=== PATIENT | male | born 1940 | race Caucasian/White ===

== ENCOUNTER 2019-01-24 18:14 | Observation (INO) | payer MEDICAID, MEDICARE ==
--- NOTE | 2019-01-24 18:34 | ED ---
Neurological HPI - HPI Summary HPI Summary: This patient is a 78 year old M with a history of NHL, meningioma, presenting to ED with a chief complaint of syncope 30 minutes ago. Patient got up and started to walk towards the kitchen when he began to feel weak and sweaty. He then proceeded to lose consciousness and was helped to the floor (did not hit head). Patient regained consciousness after a few minutes. Patient denies this occurring before. 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 Patient is taking Imbruvica. He denies a history of blood clots or atrial fibrillation. FHx of cardiac disease in the mother but no known family history of blood clots. The patient denies pain, headaches, dizziness. Patient reports neuropathy in the bilateral feet that is chronic. Patient denies numbness/tingling in the bilateral legs. 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 Negative: Numbness - Allergy/Home Medications Allergies/Adverse Reactions: Allergies Allergy/AdvReac Type Severity Reaction Status Date / Time No Known Allergies Allergy Verified 01/24/19 18:32 Home Medications: Home Medications Acyclovir 200 mg PO BID 01/24/19 [History Confirmed 01/24/19] Imbruvica 560 mg PO DAILY 01/24/19 [History Confirmed 01/24/19] Lopressor TAB* 50 mg PO BID 01/24/19 [History Confirmed 01/24/19] PMH/Surg Hx/FS Hx/Imm Hx Sensory History: Denies: Hx Legally Blind, Hx Deafness Opthamlomology History: Denies: Hx Legally Blind EENT History: Denies: Hx Deafness Neurological History: Reports: Hx Peripheral Neuropathy - Cancer History Cancer Type, Location and Year: Non-hodgkins lymphoma Infectious Disease History: Denies: Traveled Outside the [place] in Last 30 Days - Family History Known Family History: Positive: Cardiac Disease, Other - Negative for blood clots - Social History Alcohol Use: Occasionally Hx Substance Use: No Substance Use Type: Reports: None Hx Tobacco Use: Yes Smoking Status (MU): Former Smoker Review of Systems Positive: Skin Diaphoresis Neurological: Negative - Tingling, Other - Chronic neuropathy in feet Positive: Weakness, Syncope. Negative: Numbness All Other Systems Reviewed And Are Negative: Yes Physical Exam - Summary Physical Exam Summary: Constitutional: Well-developed, Well-nourished, Alert. (-) Distressed Skin: Warm, Dry HENT: Normocephalic; Atraumatic Eyes: Conjunctiva normal Neck: Musculoskeletal ROM normal neck. (-) JVD, (-) Stridor, (-) Nuchal rigidity Cardio: Irregularly irregular heart rate; Intact distal pulses; Radial pulses are 2+ and symmetric. (-) Murmur Pulmonary/Chest wall: Effort normal. (-) Respiratory distress, (-) Wheezes, (-) Rales Abd: Soft, (-) tenderness, (-) Distension, (-) Guarding, (-) Rebound Musculoskeletal: (-) Edema Lymph: (-) Cervical adenopathy Neuro: Alert, Oriented x3 Psych: Mood and affect Normal Triage Information Reviewed: Yes Vital Signs On Initial Exam: Initial Vitals Temp Pulse Resp BP Pulse Ox 98.4 F 89 16 126/69 97 01/24/19 18:21 01/24/19 18:21 01/24/19 18:21 01/24/19 18:21 01/24/19 18:21 Vital Signs Reviewed: Yes Procedures - Sedation Patient Received Moderate/Deep Sedation with Procedure: No Diagnostics - Laboratory Result Diagrams: 01/24/19 18:45 01/24/19 18:45 Lab Statement: Any lab studies that have been ordered have been reviewed, and results considered in the medical decision making process. - Radiology CXR Radiology Interpretation Completed By: ED Physician Summary of Radiographic Findings: Right chest wall port, no acute abnormality, pending official radiology report. - EKG 1816 Cardiac Rate: NL - 91 BPM EKG Rhythm: Atrial Fibrillation Summary of EKG Findings: An EKG at 1816 revealed atrial fibrillation at 91 BPM with an incomplete left bundle branch block, no STEMI, no prior to compare to. Dr. Ayala has reviewed and interpreted this EKG. Course/Dx - Course Course Of Treatment: 78 y/o male w hx non-Hodgkin's lymphoma who presents with syncopal event. - Syncope. DDx: Cardiac issue: new onset afib. Trop neg. Would benefit from telemetry monitoring. D dimer negative, lower suspicion PE. also: Seizure: no witnessed seizure activity, incontinence or h/o seizures to suggest seizure today. Hypoxia and hypoglycemia less likely in this patient with normal sats and BG. Vessels: PE, dissection, AAA. Clinical picture inconsistent, no abd pain, no pulsatile mass, symmetric pulses, d dimer neg. Volume issue: dehydration from vomiting/diarrhea/decreased PO, sepsis, GI bleed , ruptured ectopic or bleeding AAA. No signs of recent illness to suggest infection. No mediastinal widening. Neuro: No MORAN, normal neuro exam. CT head ordered by hospitalist. Also: vasovagal, drugs/meds, autonomic insufficiency - Diagnoses Provider Diagnoses: Syncope, Afib - Physician Notifications Discussed Care Of Patient With: Reina Pierce Time Discussed With Above Provider: 19:43 Instructed by Provider To: Admit As Observation - Discussed patient case with Dr. Pierce, hospitalist, who accepted the patient for admission to [facility]. Discharge ED - Sign-Out/Discharge Documenting (check all that apply): Patient Departure - admit - Discharge Plan Condition: Fair Disposition: ADMITTED TO [facility] Referrals: No Primary Care Phys,NOPCP [Primary Care Provider] - - Billing Disposition and Condition Condition: FAIR Disposition: Admitted to [facility] - Attestation Statements Document Initiated by Anibal: Yes Documenting Scribe: Michelet Shaffer Provider For Whom Anibal is Documenting (Include Credential): Conrad Ayala MD Scribe Attestation: IMichelet, scribed for Conrad Ayala MD on 01/24/19 at 2108. Scribe Documentation Reviewed: Yes Provider Attestation: The documentation as recorded by the Michelet naranjo accurately reflects the service I personally performed and the decisions made by me, Conrad Ayala MD Status of Scribe Document: Viewed
[2019-01-24 18:54] LABS: ABS Basophils 0.1 10^3/ul (0-0.2); ABS Lymphocytes 0.8 10^3/ul (1.0-4.8); ABS Monocytes 0.5 10^3/ul (0-0.8); Eosinophil % 0.2 %; Hematocrit 34 % (42-52); Hemoglobin 11.5 g/dL (14.0-18.0); Lymphocyte % 9.4 %; Mean Corpuscular HGB Conc 34 g/dL (31-36); Mean Corpuscular Hemoglobin 28 pg (27-31); Mean Corpuscular Volume 81 fL (80-94); Red Blood Count 4.15 10^6 /uL (4.18-5.48); Red Cell Distribution Width 20 % (10-15); White Blood Count 8.4 10^3/uL (3.5-10.8)
[2019-01-24 19:08] LABS: Albumin 3.3 g/dL (3.2-5.2); Albumin/Globulin Ratio 1.6 (1-3); BUN/Creatinine Ratio 17.8 (8-20); Calcium 8.5 mg/dL (8.6-10.3); EGFR African American 81.1 (>60); Globulin 2.1 g/dL (2-4); Potassium 3.4 mmol/L (3.5-5.0); Total Bilirubin 1.4 mg/dL (0.2-1.0); Total Protein 5.4 g/dL (6.4-8.9)
[2019-01-24 19:10] LABS: Troponin I 0.02 ng/mL (<0.03)
[2019-01-24 19:18] LABS: Platelet Count 77 10^3/uL (150-450)
[2019-01-24] MEDS ORDERED: Potassium Chlor TAB* 20 MEQ TAB.ER PO ONE (20:05)
[2019-01-24] MEDS ORDERED: KCL 20 MEQ/100 ML IVPREMIX* 20 MEQ/100 ML BAG IV ONE (20:05)
[2019-01-24] MEDS ORDERED: Metoprolol Tartrate TAB* 50 mg PO ONE (20:12)
[2019-01-24 20:28] LABS: Magnesium 1.8 mg/dL (1.9-2.7)
[2019-01-24] MEDS ORDERED: Acetaminophen TAB* 325 MG PO PRN (20:32)
[2019-01-24] MEDS ORDERED: Magnesium Sulfate 1 GM IV* 1 GM/100 ML BAG IV ONE (20:32)
[2019-01-24 20:40] LABS: TSH (Thyroid Stimulating Horm) 6.28 mcIU/mL (0.34-5.60)
[2019-01-24] MEDS ORDERED: NS 0.9% 1000 ML** 1,000 ML IV SCH (20:45)
[2019-01-24 21:36] LABS: Free T4 1.17 ng/dL (0.61-1.12)
[2019-01-24] MEDS: Acyclovir* 200 MG CAP PO SCH (23:31)
[2019-01-25] MEDS ORDERED: Magnesium Sulfate 1 GM IV* 1 GM/100 ML BAG IV ONE (00:30)
--- NOTE | 2019-01-25 00:36 | HP ---
CC: Primary care provider * HISTORY AND PHYSICAL: DATE OF ADMISSION: 01/24/19 PRIMARY CARE PROVIDER: None locally. CHIEF COMPLAINT: Syncope. HISTORY OF PRESENT ILLNESS: Hu Ortiz is a 78-year-old male with a history of non-Hodgkin lymphoma, for which he is currently being treated, who drove from [place], [place] to see his family in [place], [place] today. The patient stated that the drive took approximately 4 hours. Early afternoon, they checked in a hotel and then they went over to see his family for dinner. Shortly after large dinner with turkey, the patient stated that he was sitting on the couch, felt sweaty, and unwell and hot. He went to the kitchen and thought he would "walk it off." He came back and he still felt uneasy and told his that he is feeling hot. noted that the patient was diaphoretic, and shortly thereafter, the patient passed out. The patient's lowered him to the floor. She thought that he was unconscious for approximately a minute but breathing comfortably. There was no incontinence and no tremors noted. The patient came about without any confusion. He stated that he felt better after he regained consciousness. They came in to the ED for evaluation. His orthostatic blood pressures were checked and they did not show positive orthostasis. The patient was noted to be in atrial fibrillation with a heart rate in the low 100s when he came in to the ED. His potassium was 3.4, so potassium was started to be administered intravenously and the patient spontaneously converted to sinus rhythm. The patient has no history of atrial fibrillation in the past. The patient is going to be placed on overnight observation with the diagnosis of syncope. PAST MEDICAL HISTORY: 1. History of non-Hodgkin lymphoma, diagnosed in 2008, status post right-sided IJ port placed. 2. History of hypertension. 3. Status post lap cholecystectomy. 4. History of right inguinal hernia repair. MEDICATIONS: Include: 1. Imbruvica 560 mg daily. 2. Lopressor 50 mg b.i.d. 3. Acyclovir 200 mg b.i.d. ALLERGIES: No known drug allergies. FAMILY HISTORY: The patient's mother of likely breast cancer. The patient 's father of unknown reasons. The patient stated that his parents did not talk about his health, so he really does not know. SOCIAL HISTORY: The patient denies any tobacco, alcohol, or drug use. He is retired. Lives with his who is his surrogate. 's name is Evelyn Ortiz. REVIEW OF SYSTEMS: Please see history of present illness. The patient stated he had been in his usual state of health. He complains of occasional leg cramping which is chronic for him. The patient stated that recent evaluation by his oncologist noted that his PET scan was positive for masses in the abdomen and an abnormality in his brain. He subsequently had an MRI and a CT of his brain within the past couple of days locally here in [place]. Those results were not known to him, but he is supposed to follow up with a neurologist some time next week. The patient stated that he was asymptomatic from neuro standpoint and denies any problems with weakness, vision changes, or unsteady gait. The remaining 12 systems were reviewed with the patient and were otherwise negative. PHYSICAL EXAMINATION GENERAL: The patient is a very pleasant 78-year-old male who is in no acute distress, alert, awake, and oriented x3. VITAL SIGNS: Blood pressure of 118/62, heart rate of 84 and regular, respiratory rate 16, oxygen saturation 93% on room air, temperature 98.3. HEENT: Head: Atraumatic, normocephalic. Eyes: Pupils are equal, reactive to light and accommodation. Oropharynx clear. Mucosa moist. NECK: Supple. No JVD, no bruits bilaterally. RESPIRATORY: Clear to auscultation bilaterally. CARDIOVASCULAR: Regular rate and rhythm. No murmurs. ABDOMEN: Soft, nontender. Bowel sounds are present in all 4 quadrants. Mild splenomegaly palpated. EXTREMITIES: There is trace right pedal edema. Pulses are +2 bilaterally. There is no clubbing or cyanosis. NEUROLOGIC: On neuro evaluation, speech is clear. Cranial nerves II through XII grossly intact. Motor strength is 5/5 bilaterally. PSYCHIATRIC: On psychiatric evaluation, the patient is pleasant and cooperative with evaluation, oriented x3, but appears to have rather poor memory and sometimes the patient defers to his for more information. SKIN: On evaluation of the skin, no ecchymotic areas or rashes noted. DIAGNOSTIC STUDIES/LAB DATA: Sodium of 136, potassium 3.4, chloride 102, carbon dioxide 26, BUN 19, creatinine 1.07. Liver function tests were unremarkable apart from bilirubin of 1.4. The patient's troponin was 0.02. TSH of 6.28 and free T4 is pending at the time of dictation. The patient's D-dimer was below 200. White blood cell count of 8.4, hemoglobin of 11.5, hematocrit of 34, and platelets of 77 which as per the patient is chronic with thrombocytopenia. Brain CT, impression: "Right middle cerebral cranial fossa extra-axial mass. 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 Recommend pre and postcontrast MRI. Age-related atrophy and mild chronic small vessel ischemic changes." The patient's EKG initially showed atrial fibrillation with a heart rate of 91 beats per minute and incomplete right bundle-branch block. The patient's chest x-ray showed mildly accentuated right hilum, but no obvious infiltrate. That was read myself prior to the official radiologist's report. ASSESSMENT AND PLAN: 1. Syncope. The patient is not orthostatic. He did have syncope after a large meal. It is possible that it is vasovagal. He does have a mass in his brain that is being currently evaluated by his oncologist in [place], [place] and just had a recent MRI. He is not aware of the results of it though. At this point, please also note that the patient post syncope noted to be in atrial fibrillation, which is new to the patient. He was asymptomatic from cardiac standpoint though and apart from syncope, did not have any chest pain, palpitations, or shortness of breath. He spontaneously went into sinus rhythm when he was observed in the emergency department. At this point, the patient is going to be placed on overnight observation on telemetry monitoring bed. His troponins are going to be followed and we will obtain an echocardiogram. We will place him on his metoprolol from home. 2. In regards to abnormality on his brain CT, it is already being followed in [place], [place] and the patient would prefer to continue his followup with his oncologist. At this point, I am unsure but it is rather unlikely that his syncope is related to neuro syncope. 3. The patient's hypokalemia could have contributed to the patient's atrial fibrillation and syncope and is going to be replaced p.o. 4. Non-Hodgkin lymphoma. The patient is going to be continued on his p.o. medications from home. 5. The patient's TSH is slightly elevated. We will check free T4 and see if the patient may need to be on levothyroxine supplementation. 6. For DVT prophylaxis, the patient is going to be placed on sequential compression devices and pharmacologic DVT prophylaxis contraindicated due to thrombocytopenia, which in this patient is chronic. 7. The patient's code status is full. His surrogate is his . TIME SPENT: Approximately 75 minutes were spent on admission of this patient, more than half that time was spent [id number] with the patient during the interview and physical exam. [id number]/[facility] #: [id number] MTDD
[2019-01-25 04:56] LABS: ABS Lymphocytes 0.7 10^3/ul (1.0-4.8); ABS Monocytes 0.5 10^3/ul (0-0.8); ABS Neutrophils 4.4 10^3/ul (1.5-7.7); Eosinophil % 0.5 %; Hematocrit 30 % (42-52); Hemoglobin 10.1 g/dL (14.0-18.0); Lymphocyte % 13.3 %; Mean Corpuscular HGB Conc 34 g/dL (31-36); Mean Corpuscular Hemoglobin 28 pg (27-31); Mean Corpuscular Volume 82 fL (80-94); Mean Platelet Volume 7.9 fL (7.4-10.4); Platelet Count 62 10^3/uL (150-450); Red Blood Count 3.64 10^6 /uL (4.18-5.48); Red Cell Distribution Width 20 % (10-15); White Blood Count 5.6 10^3/uL (3.5-10.8)
[2019-01-25 05:12] LABS: Albumin 3.1 g/dL (3.2-5.2); Albumin/Globulin Ratio 1.8 (1-3); BUN/Creatinine Ratio 19.8 (8-20); EGFR African American 91.9 (>60); Globulin 1.7 g/dL (2-4); Indirect Bilirubin 1.1 mg/dL (0.3-1.0); Potassium 4.1 mmol/L (3.5-5.0); Total Bilirubin 1.4 mg/dL (0.2-1.0); Total Protein 4.8 g/dL (6.4-8.9)
[2019-01-25] MEDS ORDERED: Metoprolol Tartrate TAB* 50 mg PO SCH (09:00)
[2019-01-25] MEDS: Acyclovir* 200 MG CAP PO SCH (09:22)
--- NOTE | 2019-01-25 10:06 | ECHO ---
*[facility]* [place] [address] Fax #: [phone] Transthoracic Echocardiogram Patient: Hu Ortiz : 1940 Study Date: 01/25/2019 Age: 78 Gender: M HR: 60 bpm Height: 68 in /172.7 cm BSA: 1.96 m^2 Weight: 181.6 lb /82.6 kg BMI: 27.7 kg/m^2 *Foot Press Operator: Erin Coley [facility] *Referring Physician: * Reina Pierce *Reading Physician: * Lucas Walsh MD Indications: Syncope. History: Non-Hodgkin lymphoma. Left bundle branch block. Risk factors: Hypertension. Conclusions Summary: - Left ventricle: The cavity size is normal. Wall thickness is mildly to moderately increased. Systolic function is normal. The estimated ejection fraction is 55-60%. Wall motion is normal; there are no regional wall motion abnormalities. - Left atrium: The atrium is moderately to severely dilated. - Right atrium: The atrium is mildly dilated. - Functionally benign heart valves. - Aortic arch: The aortic arch is mildly dilated. - There is no prior echocardiogram available to compare with at this time. Study data: Transthoracic echocardiogram. Procedure: Transthoracic echocardiography was performed. Image quality was good. Complete 2D, spectral Doppler, and color flow Doppler. Location: Bedside. Patient status: Inpatient. Patient room number: 447. Rhythm: Normal sinus rhythm. Findings Left ventricle: The cavity size is normal. Wall thickness is mildly to moderately increased. Systolic function is normal. The estimated ejection fraction is 55-60%. Wall motion is normal; there are no regional wall motion abnormalities. There is no consistent Doppler evidence of clinically significant diastolic dysfunction. Right ventricle: The cavity size is normal. Systolic function is normal. Left atrium: The atrium is moderately to severely dilated. Right atrium: The atrium is mildly dilated. Mitral valve: The Mitral valve annulus appears calcified. The leaflets are mildly thickened. There is trace regurgitation. Aortic valve: The valve is trileaflet. The leaflets are mildly thickened. There is no evidence of stenosis. There is trace regurgitation. Tricuspid valve: The leaflets are normal thickness. There is trace regurgitation. Pulmonic valve: The leaflets are normal thickness. There is no evidence of stenosis. There is trace regurgitation. Aorta: Aortic root: The aortic root is not dilated. Aortic arch: The aortic arch is mildly dilated. Pericardium: There is no significant pericardial effusion. Pulmonary arteries: Not well visualized. Systolic pressure is within the normal range. Systemic veins: Inferior vena cava: The vessel is dilated. There is (>= 50%) respiratory change in the IVC dimension. Measurements Left ventricle Value Ref Mitral valve Value Ref MIROSLAVA, LAX 5.1 cm 4.2 - 5.8 Peak E 0.89 m/sec ----- ESD, LAX 3.8 cm 2.5 - 4.0 Peak A 0.73 m/sec ----- FS, LAX 27 % 25 - 43 Decel time 177 ms ----- PW, ED, LAX (H) 1.3 cm 0.6 - 1.0 Peak grad, D 3.2 mm Hg ----- EF 52 % 52 - 72 Peak E/A ratio 1.2 ----- E', lat santi, TDI (L) 7.4 cm/sec >=10.0 E/e', lat santi, 12 Pulmonic valve Value Ref TDI Peak v, S 0.83 m/sec ----- E', med santi, TDI (L) 6.8 cm/sec >=7.0 Peak grad, S 3.0 mm Hg --- -- E/e', med santi, 13 TDI Tricuspid valve Value Ref E', avg, TDI 7.1 cm/sec TR peak v 2.33 m/sec <=2 .8 E/e', avg, TDI 13 <=14 Peak RV-RA grad, S 22 mm Hg --- -- LVOT Value Ref Aortic root Value Ref Peak ijeoma, S 0.9 m/sec Root diam 3.3 cm <4.1 Mean grad, S 2 mm Hg Ascending aorta Value Ref Ventricular septum Value Ref AAo AP diam, S 3.2 cm ----- IVS, ED (H) 1.4 cm 0.6 - 1.0 Aortic arch Value Ref Right ventricle Value Ref Arch diam 3.6 cm ----- MIROSLAVA, LAX 3.2 cm MIROSLAVA minor ax, A4C 2.5 cm 1.9 - 3.5 Decending aorta Value Ref mid Lon peak ijeoma 0.71 m/sec ----- Pressure, S 25 mm Hg Pulmonary artery Value Ref Left atrium Value Ref Pressure, S 30.0 mm Hg ----- AP dim, ES (H) 4.80 cm 3.00 - 4.00 Inferior vena cava Value Ref ML dim, A4C 4.8 cm Diam 2.3 cm ----- SI dim, A4C 6.2 cm Vol/bsa, ES, A/L (H) 48 ml/m^2 16 - 34 Pulmonary veins Value Ref Peak v, S 0.63 m/sec ----- Right atrium Value Ref Peak v, D 0.48 m/sec ----- SI dim, ES (H) 5.6 cm 3.4 - 5.3 Peak S/D ratio 1.3 ----- ML dim, ES, A4C (H) 4.5 cm 2.6 - 4.4 A rev duration 77 ms ----- Estimated RAP 3 mm Hg Aortic valve Value Ref Santi diam, ED 2.0 cm Peak v, S 1.44 m/sec VTI, S 34.0 cm Mean grad, S 5.0 mm Hg Peak grad, S 8.0 mm Hg Legend: (L) and (H) trent values outside specified reference range. Prepared and electronically signed by Lucas Walsh MD 01/25/2019 10:06
[2019-01-25 11:50] VITALS: BP 139/74
--- NOTE | 2019-01-25 13:48 | DS ---
DISCHARGE SUMMARY: DATE OF ADMISSION: 01/24/19 DATE OF DISCHARGE: 01/25/19 ADMITTING PROVIDER: Reina Pierce MD. PRIMARY CARE PHYSICIAN: Dr. Victoriano Torres, [place], [place]. OUTPATIENT LEARNING DEVELOPER/ONCOLOGIST: Dr. Jay Quiroga of [facility] of [place], [place]. INTERVENTIONAL RADIOLOGIST: Dr. Victoriano Lee of [place], [place]. NEURO-INTERVENTIONAL RADIOLOGIST: Dr. Bk Kc of [place], [place]. ATTENDING PHYSICIAN ON THE DAY OF DISCHARGE: Jose Adhikari MD. CHIEF COMPLAINT: Syncope. PRINCIPAL DIAGNOSES: 1. Newly discovered atrial fibrillation (rate controlled). 2. Syncope, possibly vasovagal versus secondary to arrhythmia. 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 He has also had head imaging recently after the abnormal PET scan showed abnormal bleeding in the brain that was concerning for what they think is likely a meningoma versus it sounds like aneurysm. He lives in [place], [place] and drove to [place], [place] on day of admission to visit his family. Please see H and P for full details, but briefly after dinner, he began to feel sweaty, unwell, and warm. He get up to go to the kitchen to walk it off but still felt uneasy and the patient then passed out with the lowering him to the floor. He was unconscious for about a minute. There was no incontinence or tremors or limb movements. He eventually awoke without any confusion. He was taken to [facility] Emergency Room for further evaluation, reportedly with EMS definitely in the emergency room, he was noted to be on initial EKG to be in atrial fibrillation with controlled rates as well as have deficiency of potassium 3.4 and magnesium of 1.8. He converted to normal sinus rhythm spontaneously. An EKG did show evidence of some borderline left bundle-branch block and some Q waves inferiorly in III and aVF. There was no prior EKG to compare to. He has never had an echocardiogram before. He had a CT of the brain, which demonstrated a 2.1 x 1.9 cm extracranial mass located in the right middle cranial fossa anterior to the temporal lobe. There was minimal mass effect on adjacent temporal lobe and inferior frontal lobe. 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 There was also age-related atrophy and mild chronic small vessel disease. He was admitted to observation status and echocardiogram was obtained, which showed preserved ejection fraction at 55% to 60%. There was no wall motion abnormalities or valvular pathology. The left atrium was moderately to severely dilated. The right atrium was mildly dilated. Discussion was held with the patient about the new diagnosis of paroxysmal atrial fibrillation. He denies any history of palpitations. He does occasionally get dizzy. Given his CHADS2-VASC score of 3 , he is at elevated risk of stroke at approximately 3.2% per year. However, given his pending workup which will include the retroperitoneal biopsy on approximately 01/31/[address] Lee and a meeting with neuro-interventional radiologist for potential aneurysmal clipping versus assessment of what his right middle cranial fossa mass actually is along with the fact that he is away from home. It was decided to defer anticoagulation for now until I get the above studies and clarify exactly what this brain mass is, must have been an enhanced risk of intracranial bleeding. He was otherwise asymptomatic, hemodynamically stable and already on home beta-blockade with metoprolol 50 mg p.o. b.i.d. He denied any other headaches, vision changes, weight loss, focal neurological deficits. Orthostatic vital signs were checked and were normal. He also of note has likely chronic thrombocytopenia for at least ever since being on ibrutinib BTK inhibitor for his non-Hodgkin's lymphoma, which can cause severe thrombocytopenia and platelets were 77 on admission and 62 on discharge, another reason to be mindful about bleeding risks versus prior stroke prevention. DISCHARGE MEDICATIONS: Include: 1. Acyclovir 200 mg p.o. b.i.d. 2. Imbruvica (ibrutinib) 560 mg p.o. daily. 3. Lopressor 50 mg p.o. b.i.d. DISPOSITION: Home. CONDITION: Stable. FOLLOWUP: Please followup with primary care provider, Dr. Victoriano Torres, along with his hematology/oncologist as already scheduled, Dr. Quiroga. He already has appointments to see interventional radiologist, Dr. Lee, what I believe, on 01/31/19 to go retroperitoneal biopsy and Dr. Bk Kc the next day for further evaluation of his brain mass, potential aneurysm versus meningoma versus primary lymphoma versus metastasis. DIET: Heart healthy, unchanged. TIME SPENT ON DISCHARGE: Thirty five minutes. [id number]/[facility] #: [id number]
== END 2019-01-25 11:53 | disposition home or self-care (01) ==
LOC: ED 18:14 → MEDTELE 20:32
PROVIDERS: ADMIT Internal Medicine; ATTEND Internal Medicine
DX: R55 Syncope and collapse (principal); I48.91 Unspecified atrial fibrillation; R53.1 Weakness; I44.7 Left bundle-branch block, unspecified; C85.90 Non-Hodgkin lymphoma, unspecified, unspecified site; Z87.891 Personal history of nicotine dependence; Z79.899 Other long term (current) drug therapy
CPT/HCPCS: 36415; 70450; 71046; 80048; 80053; 80076; 83735; 84439; 84443; 84484; 85025; 85060; 85379; 93005; 93306; 96365; 96366; 96367; 99284; A9270-GY; G0378; J3475; J3480